=== PATIENT | female | born 1990 | race Caucasian/White ===

== ENCOUNTER 2025-08-12 12:08 | Emergency (ER) | payer SELFPAY | END 2025-08-12 12:46 | disposition home or self-care (01) | LOC: CSHERS 12:08 | DX: Z53.21 Procedure and treatment not carried out due to patient leaving prior to being seen by health care provider (principal) ==

== ENCOUNTER 2025-08-25 08:00 | Emergency (ER) | payer SELFPAY | END 2025-08-25 09:16 | disposition home or self-care (01) | LOC: CSHERS 08:00 | DX: Z76.0 Encounter for issue of repeat prescription (principal); T40.3X6A Underdosing of methadone, initial encounter; F11.20 Opioid dependence, uncomplicated; F17.210 Nicotine dependence, cigarettes, uncomplicated; F17.290 Nicotine dependence, other tobacco product, uncomplicated | CPT/HCPCS: 99281 ==

== ENCOUNTER 2025-08-26 13:41 | Emergency (ER) | payer OTHER, SELFPAY | END 2025-08-26 14:49 | disposition home or self-care (01) | LOC: CSHERS 13:41 | DX: T40.3X1A Poisoning by methadone, accidental (unintentional), initial encounter (principal); F17.210 Nicotine dependence, cigarettes, uncomplicated; F17.290 Nicotine dependence, other tobacco product, uncomplicated | CPT/HCPCS: 99283 ==